=== PATIENT | male | born 1980 | race Caucasian/White ===

== ENCOUNTER 2023-05-17 21:08 | Emergency (ER) | payer BC ==
[2023-05-17] MEDS ORDERED: Ketorolac Tromethamine 30 MG (1 mL) VIAL ONE (21:48)
== END 2023-05-17 22:31 | disposition home or self-care (01) ==
LOC: CSHERS 21:08
DX: K02.9 Dental caries, unspecified (principal); K05.10 Chronic gingivitis, plaque induced; E11.9 Type 2 diabetes mellitus without complications; I11.0 Hypertensive heart disease with heart failure; I50.9 Heart failure, unspecified; Z79.84 Long term (current) use of oral hypoglycemic drugs; Z79.82 Long term (current) use of aspirin; Z79.899 Other long term (current) drug therapy
CPT/HCPCS: 96372; 99282; J1885

== ENCOUNTER 2023-10-01 06:03 | Emergency (ER) | payer BC | END 2023-10-01 06:42 | disposition home or self-care (01) | LOC: CSHERS 06:03 | DX: M10.9 Gout, unspecified (principal); I25.2 Old myocardial infarction; I11.0 Hypertensive heart disease with heart failure; I50.9 Heart failure, unspecified; E66.9 Obesity, unspecified; G47.33 Obstructive sleep apnea (adult) (pediatric); Z55.6 Problems related to health literacy | CPT/HCPCS: 93005; 93010; 99283 ==

== ENCOUNTER 2023-10-15 06:56 | Emergency (ER) | payer BC ==
[2023-10-15] MEDS ORDERED: HYDROcodone/Acetaminophen 10/325 mg Tablet ONE (07:24)
== END 2023-10-15 08:20 | disposition home or self-care (01) ==
LOC: CSHERS 06:56
DX: M19.042 Primary osteoarthritis, left hand (principal); I11.0 Hypertensive heart disease with heart failure; I50.9 Heart failure, unspecified; M10.9 Gout, unspecified